=== PATIENT | female | born 1950 | race Caucasian/White ===

== ENCOUNTER → 2017-09-08 | Outpatient (CLI) | payer OTHER, MEDICARE ==
[2017-09-08 14:16] LABS: HEMOGLOBIN 14.1 g/dL (12.2-16.2); LYMPH # 2.2 K/mm3 (0.7-4.5); LYMPH % 29.7 % (10-50.0)
[2017-09-08 15:11] LABS: BUN 19 mg/dL (7-18)
[2017-09-08 15:22] LABS: GFR (ESTIMATED) 71 ML/MIN (59-)
== END ==
LOC: CARL-LAB 10:23
PROVIDERS: Nurse Practitioner Family
DX: I10 Essential (primary) hypertension (principal); E03.9 Hypothyroidism, unspecified; E78.5 Hyperlipidemia, unspecified; J44.9 Chronic obstructive pulmonary disease, unspecified; M79.89 Other specified soft tissue disorders